=== PATIENT | male | born 2000 | race Caucasian/White ===

== ENCOUNTER 2021-12-30 12:39 | Outpatient (CLI) | payer OTHER | END 2021-12-30 12:40 | disposition home or self-care (01) | PROVIDERS: ATTEND Student in an Organized Health Care Education/Training Program | DX: G12.1 Other inherited spinal muscular atrophy (principal) ==

== ENCOUNTER 2025-05-18 15:12 | Outpatient (CLI) | payer BC, OTHER | END 2025-05-18 15:13 | disposition home or self-care (01) | PROVIDERS: ATTEND Student in an Organized Health Care Education/Training Program | DX: G12.9 Spinal muscular atrophy, unspecified (principal) ==